=== PATIENT | female | born 2000 | race Caucasian/White ===

== ENCOUNTER 2019-03-14 18:01 | Emergency (ER) | payer BC, OTHER ==
[~2019-03-14] VITALS: Ht 154.9 cm; Wt 93.8 kg
[2019-03-14 18:20] VITALS: BP 117/71; PULSE 74; RESP 18; Ht 154.9 cm; Wt 93.8 kg
[2019-03-14] MEDS ORDERED: KETOROLAC 60 MG INJ IM STA (19:04)
[2019-03-14] MEDS ORDERED: traMADol 50 MG TAB PO ONE (19:30)
[2019-03-14] MEDS ORDERED: ONDA4TAB14 PO (20:27)
[2019-03-14] MEDS ORDERED: TRAM50TA2 PO (20:27)
[2019-03-14] MEDS ORDERED: IBUP800T48 PO (20:27)
[2019-03-14] MEDS ORDERED: HYDROCODONE/APAP (5/325) TAB PO ONE (20:30)
--- NOTE | 2019-03-14 20:46 | ERD ---
ER Documentation Chief Complaint Chief Complaint L FOOT PAIN S/P FOOT SMASHED AGAINST COUCH FRAME YESTERDAY HPI History of Present Illness: 18-year-old female who denies a past medical history coming in today with complaint of left foot pain. Patient reports that her she smashed her foot against the frame of the couch last night. Patient denies any other associated symptoms. At home pharmacological/nonpharmacological treatment for symptoms: Denies Denies social concerns; Denies recent foreign travel ROS All systems reviewed and are negative except as per history of present illness. Medications Home Meds Active Scripts Ondansetron (Ondansetron Odt) 4 Mg Tab.rapdis, 4 MG PO Q6H PRN for NAUSEA AND/OR VOMITING, #10 TAB Prov:VASQUEZ BIGGS V CONTINUOUS IMPROVEMENT COACH 03/14/19 Ibuprofen* (Motrin*) 800 Mg Tab, 800 MG PO Q6H PRN for SWELLING/INFLAMMATION, #30 TAB Prov:VASQUEZ BIGGS V CONTINUOUS IMPROVEMENT COACH 03/14/19 Tramadol HCl (Tramadol HCl) 50 Mg Tablet, 50 MG PO Q6 PRN for PAIN, #20 TAB Prov:VASQUEZ BIGGS V CONTINUOUS IMPROVEMENT COACH 03/14/19 Allergies Allergies: Coded Allergies: No Known Allergy (Unverified , 03/14/19) PMhx/Soc Medical and Surgical Hx: pt denies Medical Hx, pt denies Surgical Hx Hx Alcohol Use: No Hx Substance Use: No Hx Tobacco Use: No Smoking Status: Never smoker FmHx Family History: No diabetes, No coronary disease Physical Exam Vitals Vital Signs Date Temp Pulse Resp B/P (MAP) Pulse Ox O2 O2 Flow FiO2 Time Delivery Rate 03/14/19 98.8 74 18 117/71 100 18:20 (86) Physical Exam Const: No acute distress Head: Atraumatic Eyes: Normal Conjunctiva ENT: Normal External Ears, Nose and Mouth. Neck: Full range of motion. No meningismus. Resp: Clear to auscultation bilaterally Cardio: Regular rate and rhythm, no murmurs Abd: Soft, non tender, non distended. Normal bowel sounds Skin: No petechiae or rashes Back: No midline or flank tenderness Ext: No cyanosis, or edema; LLE: Tenderness to palpation over dorsal aspect of left foot, ecchymosis noted to fifth toe as well as PHALANX Neur: Awake and alert Psych: Normal Mood and Affect Results 24 hrs Laboratory Tests Test 03/14/19 19:46 POC Beta HCG, Qualitative NEGATIVE Current Medications Medications Dose Sig/Oly Start Time Status Last (Trade) Ordered Route PRN Stop Time Admin Dose Reason Admin Ketorolac 60 mg ONCE STAT 03/14/19 DC 03/14/19 Tromethamine IM 19:04 19:39 (Toradol) 03/14/19 19:07 Tramadol 50 mg ONCE ONCE 03/14/19 DC 03/14/19 HCl PO 19:30 19:38 (Ultram) 03/14/19 19:31 1 tab ONCE ONCE 03/14/19 DC Acetaminophen PO 20:30 / 03/14/19 20:31 Hydrocodone Bitart (Hemlock (5/325)) Procedures/MDM ED course includes a thorough examination and history. Medications: Ketorolac, tramadol Imaging: Left foot x-ray Labs: Low suspicion for life-threatening medical emergency. Low suspicion for orthop edic emergency that requires hospitalization or immediate surgical intervention. Low suspicion for neurovascular compromise. Otherwise healthy patient presenting with constellation of symptoms likely representing closed fracture of phalanx of left fifth toe as characterized by history, physical exam findings, imaging findings. X-ray results showing: IMPRESSION: Nondisplaced transverse fracture involving the proximal shaft of the proximal phalanx of the left fifth toe. Physician Lul Date Time Electronically viewed and signed by Lennox Sheikh Physician on 03/14/2019 19:47 Patient reassessment 2020: Pain decreased, currently 1/10. Orders placed for Bryan wrap application, Ortho shoe, lauryn tape to fourth and fifth toe of left foot. Patient hemodynamically stable. No respiratory distress, otherwise relatively well appearing and nontoxic. Disposition given. Patient educated on diagnoses, prescriptions, follow-up care, return precautions. Strict return precautions given for worsening condition; questions answered discharge. Patient verbalizes understanding of plan of care as well as follow-up and return precautions. Disposition for discharge with followup in 2 days with PCP/clinic, possible referral to orthopedics or senior process engineer. Departure Diagnosis: Primary Impression: Closed fracture of phalanx of left fifth toe Encounter type: initial encounter Qualified Codes: S92.502A - Displaced unspecified fracture of left lesser toe(s), initial encounter for closed fracture Condition: Stable Patient Instructions: Fracture, Foot Referrals: [facility] YOU HAVE RECEIVED A MEDICAL SCREENING EXAM AND THE RESULTS INDICATE THAT YOU DO NOT HAVE A CONDITION THAT REQUIRES URGENT TREATMENT IN THE EMERGENCY DEPARTMENT. FURTHER EVALUATION AND TREATMENT OF YOUR CONDITION CAN WAIT UNTIL YOU ARE SEEN IN YOUR DOCTORS OFFICE WITHIN THE NEXT 1-2 DAYS. IT IS YOUR RESPONSIBILITY TO MAKE AN APPOINTMENT FOR FOLOW-UP CARE. IF YOU HAVE A PRIMARY DOCTOR --you should call your primary doctor and schedule an appointment IF YOU DO NOT HAVE A PRIMARY DOCTOR YOU CAN CALL OUR PHYSICIAN REFERRAL HOTLINE AT IF YOU CAN NOT AFFORD TO SEE A PHYSICIAN YOU CAN CHOSE FROM THE FOLLOWING [facility] [address] [facility] [address] [facility] [facility] [address] [facility] [address] [facility] [address] [facility]. [facility] [address] [facility]. [facility] YOU HAVE RECEIVED A MEDICAL SCREENING EXAM AND THE RESULTS INDICATE THAT YOU DO NOT HAVE A CONDITION THAT REQUIRES URGENT TREATMENT IN THE EMERGENCY DEPARTMENT. FURTHER EVALUATION AND TREATMENT OF YOUR CONDITION CAN WAIT UNTIL YOU ARE SEEN IN YOUR DOCTORS OFFICE WITHIN THE NEXT 1-2 DAYS. IT IS YOUR RESPONSIBILITY TO MAKE AN APPOINTMENT FOR FOLOW-UP CARE. IF YOU HAVE A PRIMARY DOCTOR --you should call your primary doctor and schedule and appointment IF YOU DO NOT HAVE A PRIMARY DOCTOR YOU CAN CALL OUR PHYSICIAN REFERRAL HOTLINE AT . IF YOU CAN NOT AFFORD TO SEE A PHYSICIAN YOU CAN CHOSE FROM THE FOLLOWING [facility] INSTITUTIONS: [facility] [address] [place] [address] [facility] [address] [place] [address] [facility] + [facility] [address] [place] [address] Additional Instructions: Thank you very much for allowing us to participate in your care. [place] and [place] [facility] [place] It is important to read all discharge instructions and education provided in your discharge packet. *It is very important to follow-up with your primary care doctor for a possible referral to a client resource specialist/orthopedic bone doctor for further evaluation* Call your primary care doctor TOMORROW for an appointment during the next 2-4 days and bring all the information and medications prescribed. Have prescriptions filled and follow precisely the directions on the label. -Tramadol is an opiate pain medication; take this medication as needed for moderate to severe pain. No operating of heavy machinery while taking this medication. It may cause drowsiness. --Ibuprofen is a medication that will help with pain/inflammation. At the dosage of 600 to 800 mg, this will help with inflammation/swelling. Take this medication as prescribed. Take this medication with food to prevent stomach upset. -Zofran is a medication for nausea/vomitting; take this medication as needed for nausea/vomiting/decreased appetite.*Tramadol pain medication and ibuprofen may cause nausea* If the symptoms get worse and your provider is unavailable, return to the Emergency Department immediately. VASQUEZ BIGGS NP Mar 14, 2019 20:46
== END 2019-03-14 20:35 | disposition home or self-care (01) ==
LOC: FTE 18:01
DX: S92.515A Nondisplaced fracture of proximal phalanx of left lesser toe(s), initial encounter for closed fracture (principal); W22.8XXA Striking against or struck by other objects, initial encounter; Y92.9 Unspecified place or not applicable
CPT/HCPCS: 73630; 81025; 96372; 99284; J1885; Z7610